=== PATIENT | male | born 1965 | race Caucasian/White ===

== ENCOUNTER 2018-08-09 21:38 | Emergency (ER) | payer OTHER ==
[~2018-08-09] VITALS: Ht 193 cm; Wt 108.9 kg
[~2018-08-09 21:38] MED LIST: AMOXICILLIN875 MG PO; IBUPROFEN 800800 M1 PO; TRAMADOL 50 MG50 MG PO
[2018-08-09] MEDS ORDERED: FLEXERIL PO (21:59)
[2018-08-09] MEDS ORDERED: TRAMADOL 50 MG50 MG PO (21:59)
[2018-08-09 23:00] VITALS: BP 170/98
== END 2018-08-09 23:02 | disposition home or self-care (01) ==
LOC: M.ERS 21:38
DX: M54.5 Low back pain (principal); G89.29 Other chronic pain; F17.200 Nicotine dependence, unspecified, uncomplicated